=== PATIENT | female | born 1990 | race Caucasian/White ===

== ENCOUNTER 2017-07-01 12:49 | Emergency (ER) | payer OTHER ==
[~2017-07-01] VITALS: Ht 160 cm; Wt 65.8 kg
[2017-07-01] MEDS ORDERED: TRI-SPRINTEC1 EACH PO (13:29)
== END 2017-07-01 15:55 | disposition home or self-care (01) ==
LOC: ED 12:49
DX: T74.21XA Adult sexual abuse, confirmed, initial encounter (principal); J45.909 Unspecified asthma, uncomplicated; F17.200 Nicotine dependence, unspecified, uncomplicated; Z79.899 Other long term (current) drug therapy
CPT/HCPCS: 80069; 80076; 82977; 83615; 84703; 86703; 96372; 99283; J0696